=== PATIENT | male | born 1970 | race American Indian/Alaskan Native ===

== ENCOUNTER 2017-12-19 04:42 | Emergency (ER) | payer OTHER ==
[2017-12-19 04:42] VITALS: BMI 26.5
[2017-12-19 04:50] VITALS: TEMP 98.4
--- NOTE | 2017-12-19 04:52 | C.PDOC ---
History Of Present Illness 47 year old male presents to the ED for evaluation of SOB that has been worsening since yesterday. Patient able to speak in 3-4 word sentences, staters he is not a smoker. Patient denies fever, chills, nausea, vomit, CP, palpitations, dizziness, weakness, numbness. Time Seen by Provider: 12/19/17 04:51 Chief Complaint (Nursing): Respiratory Distress History Per: Patient History/Exam Limitations: no limitations Onset/Duration Of Symptoms: Days Current Symptoms Are (Timing): Still Present Recent travel outside of the [place]: No Additional History Per: Patient Past Medical History Reviewed: Historical Data, Nursing Documentation, Vital Signs Vital Signs: Last Vital Signs Temp 98.4 F 12/19/17 04:48 Pulse 82 12/19/17 06:05 Resp 18 12/19/17 06:05 BP 134/85 12/19/17 06:05 Pulse Ox 100 12/19/17 06:05 - Medical History PMH: Asthma Denies: Chronic Kidney Disease Surgical History: No Surg Hx Family History: States: Unknown Family Hx - Social History Hx Alcohol Use: No Hx Substance Use: No - Immunization History Hx Tetanus Toxoid Vaccination: No Hx Influenza Vaccination: No Hx Pneumococcal Vaccination: No Review Of Systems Constitutional: Negative for: Fever, Chills Cardiovascular: Negative for: Chest Pain, Palpitations Respiratory: Positive for: Shortness of Breath. Negative for: Cough Gastrointestinal: Negative for: Nausea, Vomiting Neurological: Negative for: Weakness, Numbness, Headache, Dizziness Physical Exam - Physical Exam Appears: Non-toxic Skin: Warm, Dry Head: Normacephalic Eye(s): bilateral: Normal Inspection Oral Mucosa: Moist Throat: No Erythema, No Exudate Neck: Supple Chest: Symmetrical Cardiovascular: Rhythm Regular Respiratory: Decreased Breath Sounds, No Rales, No Rhonchi, Wheezing (diffuse ) Gastrointestinal/Abdominal: Soft, No Tenderness, No Guarding, No Rebound Back: Normal Inspection Extremity: No Tenderness, No Swelling Extremity: Bilateral: Atraumatic, Normal Color And Temperature, Normal ROM Neurological/Psych: Oriented x3, Normal Speech Gait: Steady ED Course And Treatment - Laboratory Results Result Diagrams: 12/19/17 05:22 12/19/17 05:22 O2 Sat by Pulse Oximetry: 97 (On RA) Pulse Ox Interpretation: Normal - Radiology CXR: Interpreted by Me, Viewed By Me CXR Interpretation: No: Infiltrates, Fracture, Pnemothorax Progress Note: Plan: - Labs. - Duoneb 3 ml INH. - Solumedrol 125 mg IVP. - IV fluids Reevaluation Time: 06:32 Reassessment Condition: Improved Critical Care Time - Critical Care Note Total Time (in mins): 30 Documented critical care: time excludes all time spent performing seperately billable procedures. Disposition Counseled Patient/Family Regarding: Studies Performed, Diagnosis, Need For Followup, Rx Given - Disposition Referrals: Aruna Chowdhury MD [Staff Provider] - Disposition: HOME/ ROUTINE Disposition Time: 04:52 Condition: FAIR Additional Instructions: Please return if symptoms recur Prescriptions: Albuterol HFA [Ventolin HFA 90 mcg/actuation (8 g)] 2 puff IH [id number] #1 puff Albuterol/Ipratropium [Duoneb 3 MG/3 Ml-0.5 MG/3 Ml 3 Ml] 1 ea IH QID PRN #50 neb PRN Reason: Wheezing Prednisone [Deltasone] 20 mg PO DAILY #5 tablet Instructions: Asthma, Adult (DC) Forms: [employer] ([place]) - Clinical Impression Clinical Impression: Exacerbation of asthma - Scribe Statement The provider has reviewed the documentation as recorded by the Scribe Tristan Flower All medical record entries made by the Scribe were at my direction and personally dictated by me. I have reviewed the chart and agree that the record accurately reflects my personal performance of the history, physical exam, medical decision making, and the department course for this patient. I have also personally directed, reviewed, and agree with the discharge instructions and disposition.
[2017-12-19] MEDS ORDERED: Sodium Chloride 0.9% 1,000 ML IV ONE (04:54)
[2017-12-19] MEDS ORDERED: Ipratropium 0.02% Inhal Soln (0.5 mg/2.5 ml) UD IH ONE (04:55)
[2017-12-19] MEDS ORDERED: Albuterol 0.083% Inhal Sol (2.5 mg/3 mL) UD ONE (04:55)
[2017-12-19] MEDS: Albuterol-Ipratrop 3 mg / 0.5 (3 ml) UD IH SCH ×3 (05:06→05:34)
[2017-12-19] MEDS ORDERED: Albuterol-Ipratrop 3 mg / 0.5 (3 ml) UD ONE ×2 (05:10→05:35)
[2017-12-19 05:25] LABS: BASO % 0.7 % (0.0-2.0); EOS # 0.3 K/uL (0.0-0.7); EOS % 7.4 % (0.0-4.0); HEMOGLOBIN 13.1 g/dL (12.0-18.0); LYMPH # 1.9 K/uL (1.0-4.3); LYMPH % 46.8 % (20.0-40.0); MEAN CELL VOLUME 91.1 fL (80.0-94.0); MEAN CORPUSCULAR HEMOGLOBIN 30.7 pg (27.0-31.0); MEAN CORPUSCULAR HGB CONC 33.7 g/dL (33.0-37.0); MEAN PLATELET VOLUME 9.2 fL (7.2-11.7); MONO # 0.6 K/uL (0.0-0.8); MONO % 14.3 % (0.0-10.0); NEUT # 1.2 K/uL (1.8-7.0); NEUT % 30.8 % (50.0-75.0); RBC 4.25 Mil/uL (4.40-5.90); RED CELL DISTRIBUTION WIDTH 12.8 % (11.5-14.5)
[2017-12-19 05:37] LABS: ALB/GLOB RATIO 1.6 (1.0-2.1)
[2017-12-19 05:51] LABS: ALT/SGPT 25 U/L (21-72); AST/SGOT 15 U/L (17-59); BLOOD UREA NITROGEN 10 mg/dL (9-20); CALCIUM 7.9 mg/dl (8.6-10.4); GFR AFRICAN-AMERICAN > 60; GFR NON-AFRICAN AMERICAN > 60
[2017-12-19 06:06] VITALS: BP 134/85; PULSE 82; RESP 18
[2017-12-19 06:34] VITALS: O2SAT 97
--- NOTE | 2017-12-19 15:47 | RAD ---
Date of service: 12/19/2017 HISTORY: wheezing COMPARISON: Comparison is made with 03/21/2017 TECHNIQUE: Chest PA and lateral FINDINGS: LUNGS: No active pulmonary disease. PLEURA: No significant pleural effusion identified. No pneumothorax apparent. CARDIOVASCULAR: Normal. OSSEOUS STRUCTURES: No significant abnormalities. VISUALIZED UPPER ABDOMEN: Normal. OTHER FINDINGS: None. IMPRESSION: No active disease.
== END 2017-12-19 06:50 | disposition home or self-care (01) ==
LOC: C.ER 04:42
DX: J45.901 Unspecified asthma with (acute) exacerbation (principal)
CPT/HCPCS: 71046; 80053; 85025; 94770; 96374; 99284; J2930; J7030

== ENCOUNTER 2018-05-06 07:30 | Emergency (ER) | payer OTHER ==
[2018-05-06 07:31] VITALS: BMI 25.7
[2018-05-06 07:38] VITALS: O2SAT 100
[2018-05-06] MEDS ORDERED: Albuterol-Ipratrop 3 mg / 0.5 (3 ml) UD IH STA (07:54)
[2018-05-06] MEDS ORDERED: Albuterol 0.083% Inhal Sol (2.5 mg/3 mL) UD INH STA (07:54)
[2018-05-06] MEDS ORDERED: Albuterol 0.083% Inhal Sol (2.5 mg/3 mL) UD ONE (08:06)
[2018-05-06] MEDS ORDERED: Albuterol-Ipratrop 3 mg / 0.5 (3 ml) UD ONE (08:06)
--- NOTE | 2018-05-06 09:30 | C.PDOC ---
History Of Present Illness 48 year old male with PMHx of asthma presents to the ED complaining of intermittent shortness of breath, wheezing, and chest tightness for the past several days. Reports he normally uses Ventolin inhaler but it did not help this time. Denies any fever, chills, cough, or any other symptoms. Time Seen by Provider: 05/06/18 07:38 Chief Complaint (Nursing): Shortness Of Breath History Per: Patient History/Exam Limitations: no limitations Onset/Duration Of Symptoms: Days, Intermittent Episodes Current Symptoms Are (Timing): Still Present Quality: Tightness Current Respiratory Medications: Other (Ventolin ) Associated Symptoms: Other (chest tightness, wheezing). denies: Fever, Chills Past Medical History Reviewed: Historical Data, Nursing Documentation, Vital Signs Vital Signs: Last Vital Signs Temp 98.6 F 05/06/18 07:35 Pulse 68 05/06/18 07:35 Resp 20 05/06/18 07:55 BP 121/78 05/06/18 07:35 Pulse Ox 100 05/06/18 07:35 - Medical History PMH: Asthma Denies: Chronic Kidney Disease Other Surgeries: Hx of surgeries Family History: States: No Known Family Hx - Social History Hx Alcohol Use: Yes Hx Substance Use: No - Immunization History Hx Tetanus Toxoid Vaccination: No Hx Influenza Vaccination: No Hx Pneumococcal Vaccination: No Review Of Systems Except As Marked, All Systems Reviewed And Found Negative. Constitutional: Negative for: Fever, Chills Cardiovascular: Positive for: Other (chest tightness ) Respiratory: Positive for: Shortness of Breath, Wheezing. Negative for: Cough Physical Exam - Physical Exam Appears: Non-toxic, No Acute Distress Skin: Warm, Dry, No Rash Head: Normacephalic Eye(s): bilateral: Normal Inspection Nose: Normal Oral Mucosa: Moist Neck: Supple Chest: Symmetrical Cardiovascular: Rhythm Regular, No Murmur Respiratory: No Rales, No Rhonchi, Wheezing (diffused wheezing, more on the right side ), Other (speaking full sentences ) Gastrointestinal/Abdominal: Soft, No Tenderness Neurological/Psych: Oriented x3, Normal Speech Gait: Steady ED Course And Treatment ECG: Interpreted By Me, Viewed By Me ECG Rhythm: Sinus Bradycardia ECG Interpretation: No Acute Changes Rate From EC O2 Sat by Pulse Oximetry: 100 (RA) Pulse Ox Interpretation: Normal - Other Rad CXR X-Ray: Viewed By Me, Read By Radiologist Interpretation: Accession No. : [id number]. Patient Name / ID : NICO HERRING / [id number]. Exam Date : 05/06/2018 08:16:17 ( Approved ). Study Comment : Sex / Age : M / 48Y. Creator : Su Mchugh MD. Dictator : Su Mchugh MD. Business Solutions Analyst : Live Truck Operator : Su Mchugh MD. Approver2 : Report Date : 05/06/2018 09:41:31. My Comment : . Date of service: 05/06/2018. HISTORY: chest tightness, h/o asthma. COMPARISON: 12/19/2017. FINDINGS: LUNGS: The lungs are well inflated and clear. PLEURA: No pleural effusions or pneumothorax. CARDIOVASCULAR: The heart is normal in size. No aortic atherosclerotic calcification present. OSSEOUS STRUCTURES: Within normal limits for the patient's age. VISUALIZED UPPER ABDOMEN: Normal. OTHER FINDINGS: None. IMPRESSION: No active pulmonary disease. Progress Note: Patient given nebulizer treatment and Prednisone. CXR and EKG ordered and reviewed. On re-evaluation patient feels better and is stable to be d/c home with PMD/Clinic follow up. Disposition - Disposition Disposition: HOME/ ROUTINE Disposition Time: 09:59 Condition: STABLE Additional Instructions: Follow up with PMD within 1-2 days. Return to ED if feel worse. Prescriptions: Albuterol 0.083% [Albuterol Sulfate 3 Ml] 3 ml IH .Q4-6H #100 vial Nebulizer [Compact Compressor Nebulizer] 1 dev XX PRN PRN #1 dev PRN Reason: Wheezing Mask, Face [Nebulizer Aerosol Mask Adult] 1 dev XX PRN PRN #1 dev PRN Reason: Wheezing predniSONE [predniSONE Tab] 2 tab PO DAILY #8 tab Albuterol HFA [Ventolin HFA 90 mcg/actuation (8 g)] 1 puff IH .Q4-6H #1 inhaler Instructions: Asthma, Adult (DC) Forms: [employer] ([place]) - Clinical Impression Clinical Impression: Acute asthma exacerbation - PA / SHRIMPING BOAT CAPTAIN / Resident Statement MD/DO has reviewed & agrees with the documentation as recorded. - Scribe Statement The provider has reviewed the documentation as recorded by the Scribe Sari Chaney All medical record entries made by the Scribe were at my direction and personally dictated by me. I have reviewed the chart and agree that the record accurately reflects my personal performance of the history, physical exam, medical decision making, and the department course for this patient. I have also personally directed, reviewed, and agree with the discharge instructions and disposition.
--- NOTE | 2018-05-06 09:45 | RAD ---
Date of service: 05/06/2018 HISTORY: chest tightness, h/o asthma COMPARISON: 12/19/2017. FINDINGS: LUNGS: The lungs are well inflated and clear. PLEURA: No pleural effusions or pneumothorax. CARDIOVASCULAR: The heart is normal in size. No aortic atherosclerotic calcification present. OSSEOUS STRUCTURES: Within normal limits for the patient's age. VISUALIZED UPPER ABDOMEN: Normal. OTHER FINDINGS: None. IMPRESSION: No active pulmonary disease.
[2018-05-06 10:16] VITALS: BP 122/87; PULSE 81; RESP 18; TEMP 98.1
--- NOTE | 2018-05-09 08:22 | CARD ---
APPROVED REPORT Date of service: 05/06/2018 EKG Measurement Heart [id number] <Conclusion> Sinus bradycardia Otherwise normal ECG
== END 2018-05-06 10:16 | disposition home or self-care (01) ==
LOC: C.ER 07:30
DX: J45.901 Unspecified asthma with (acute) exacerbation (principal)

== ENCOUNTER 2018-08-04 20:52 | Inpatient (IN) | payer OTHER ==
[2018-08-04 20:52] VITALS: BMI 25.7
--- NOTE | 2018-08-04 21:01 | C.PDOC ---
History Of Present Illness 48 year old male, w/pmhx of asthma (previous intubations) and pneumonia (currently on Azithromycin) presents to the ED for evaluation of shortness of breath. Patient states he has been experiencing shortness of breath over the past couple days, and symptoms feel like his previous asthma. Patient also reports mild fever. He has been using a nebulizer at home without relief. He denies any nausea or vomiting. No rashes. No allergy like symptoms. No tongue swelling or throat itchiness. Patient denies chills, cough, generalized body aches, chest pain, back pain, abdominal pain or any urinary complaints at this time. Time Seen by Provider: 08/04/18 21:01 Chief Complaint (Nursing): Shortness Of Breath History Per: Patient History/Exam Limitations: no limitations Onset/Duration Of Symptoms: Days (2) Current Symptoms Are (Timing): Still Present Associated Symptoms: Fever. denies: Chills Additional History Per: Patient Past Medical History Reviewed: Historical Data, Nursing Documentation, Vital Signs - Medical History PMH: Asthma, Pneumonia Denies: Chronic Kidney Disease Surgical History: No Surg Hx Family History: States: Unknown Family Hx - Social History Hx Alcohol Use: Yes Hx Substance Use: No - Immunization History Hx Tetanus Toxoid Vaccination: No Hx Influenza Vaccination: No Hx Pneumococcal Vaccination: No Review Of Systems Constitutional: Positive for: Fever. Negative for: Chills, Sweats, Weakness, Malaise, Weight loss Eyes: Negative for: Pain, Vision Change, Conjunctivae Inflammation, Eyelid Inflammation, Redness ENT: Negative for: Ear Pain, Ear Discharge, Nose Pain, Nose Congestion, Mouth Pain, Mouth Swelling Cardiovascular: Negative for: Chest Pain, Palpitations, Orthopnea Respiratory: Positive for: Shortness of Breath. Negative for: Cough, Hemoptysis, SOB with Excertion, Pleuritic Pain Gastrointestinal: Negative for: Nausea, Vomiting, Abdominal Pain, Constipation, Melena, Hematochezia, Hematemesis Genitourinary: Negative for: Dysuria, Frequency, Incontinence, Hematuria, Penile Discharge Musculoskeletal: Positive for: Other (generalized body aches ). Negative for: Neck Pain, Shoulder Pain, Arm Pain, Back Pain Skin: Negative for: Rash, Lesions, Jaundice Neurological: Negative for: Weakness, Numbness, Confusion, Seizures, Altered Mental Status, Headache Physical Exam - Physical Exam Appears: Non-toxic, Other (speaking 2-3 word sentences initially) Skin: Normal Color, Warm, Dry Head: Atraumatic, Normacephalic Eye(s): bilateral: Normal Inspection, PERRL, EOMI Ear(s): Bilateral: Normal Nose: Normal Oral Mucosa: Moist Tongue: Normal Appearing Lips: Normal Appearing Teeth: Normal Dentition Gingiva: Normal Appearing Throat: Normal, No Erythema, No Exudate Neck: Normal, Normal ROM, Supple, Other (no meningeal signs) Lymphatic: Normal Exam, No Adenopathy Chest: Symmetrical, No Deformity, No Tenderness Cardiovascular: Rhythm Regular, No Edema, No Friction Rub, No Murmur, No JVD Respiratory: No Accessory Muscle Use, No Rales, No Rhonchi, Wheezing (all neff ), No Plerual Rub, Other (speaking in 3-4 word sentences ) Gastrointestinal/Abdominal: Soft, No Tenderness, No Guarding, No Rebound Back: Normal Inspection, No CVA Tenderness, No Vertebral Tenderness, No Decreased ROM, No Paraspinal Tenderness Extremity: Normal ROM, No Tenderness, No Pedal Edema, Capillary Refill (less than 2 seconds ), No Swelling Extremity: Bilateral: Atraumatic Neurological/Psych: Oriented x3, Normal Speech, Normal Cognition ED Course And Treatment - Laboratory Results Result Diagrams: 08/04/18 21:21 08/04/18 21:21 O2 Sat by Pulse Oximetry: 99 (on RA) Pulse Ox Interpretation: Normal Medical Decision Making Medical Decision Making: Impression: 48 year old male with shortness of breath. Speaking in 2-3 word sentences with nebulizer. Denies any chest pain or back pain. No hx of blood clots. Lungs w/ diffuse wheezes. No rash noted or throat abnls. No swelling or rash. Previous intubations, and recent dx w/ PNA currently rx day 4/5 w/ PNA diagnosed via CT. Magnesium ordered given speaking in 2-3 sentences and hx of intubations. EK, NSR, no stemi Differential diagnoses include but are not limited to: moderate-severe asthma exacerbation vs outpatient failure of treatment of pneumonia Plan: * bloodwork * CXR * Rapid Flu Swab * Albuterol INH * Magnesium Sulfate IVPB * Solu-Medrol IVP * IV fluids * reassess and disposition Progress: Bloodwork, CXR, Rapid Flu swab ordered and reviewed. Albuterol INH, Magnesium Sulfate IVPB, Solu-Medrol IVP and IV Fluids given. 1127 flu negative CXR w/ pna on my read, Abx ordered for failed outpt rx. No elevated wbc, however was given mag and had failed outpt rx of PNA dx w/ CT 4-5d prior. Pt in NAD on re-eval, vitals stabilized, speaking in full sentences, comfortable Appreciate consult w/ ICU Dr. Rojas: to tele Appreciate consult w/ DR. Mckeon: to admit to his service Disposition - Disposition Disposition: HOSPITALIZED Disposition Time: 23:30 Condition: GOOD - Clinical Impression Clinical Impression: Pneumonia, Asthma - Scribe Statement The provider has reviewed the documentation as recorded by the Scribe (Wilma Rojas) Provider Attestation: All medical record entries made by the Scribe were at my direction and personally dictated by me. I have reviewed the chart and agree that the record accurately reflects my personal performance of the history, physical exam, medical decision making, and the department course for this patient. I have also personally directed, reviewed, and agree with the discharge instructions and disposition.
[2018-08-04] MEDS ORDERED: Albuterol-Ipratrop 3 mg / 0.5 (3 ml) UD ONE ×2 (21:05→21:20)
[2018-08-04] MEDS ORDERED: Albuterol-Ipratrop 3 mg / 0.5 (3 ml) UD INH STA (21:06)
[2018-08-04] MEDS ORDERED: MethylPREDNISolone 40 mg Vial IVP STA (21:07)
[2018-08-04] MEDS ORDERED: Magnesium Sulfate 1 gm in D5W 1 GM/100 ML BAG IVPB ONE ×2 (21:07→21:08)
[2018-08-04 21:24] LABS: BASO # 0.1 K/uL (0.0-0.2); BASO % 0.8 % (0.0-2.0); EOS % 0.1 % (0.0-4.0); HEMOGLOBIN 14.5 g/dL (12.0-18.0); LYMPH # 2.1 K/uL (1.0-4.3); LYMPH % 30.7 % (20.0-40.0); MEAN CELL VOLUME 93.5 fL (80.0-94.0); MEAN CORPUSCULAR HEMOGLOBIN 31.1 pg (27.0-31.0); MEAN CORPUSCULAR HGB CONC 33.2 g/dL (33.0-37.0); MEAN PLATELET VOLUME 9.9 fL (7.2-11.7); MONO # 0.3 K/uL (0.0-0.8); MONO % 4.9 % (0.0-10.0); NEUT # 4.3 K/uL (1.8-7.0); NEUT % 63.5 % (50.0-75.0); RBC 4.68 Mil/uL (4.40-5.90); RED CELL DISTRIBUTION WIDTH 13.3 % (11.5-14.5); WHITE BLOOD COUNT 6.8 K/uL (4.8-10.8)
[2018-08-04] MEDS: Sodium Chloride 0.9% 1,000 ML IV SCH (21:24)
[2018-08-04] MEDS ORDERED: Sodium Chloride 0.9% 1,000 ML ONE (21:26)
[2018-08-04 21:29] LABS: VENOUS BLOOD GAS BASE EXCESS 0.8 mmol/L (0.0-2.0); VENOUS BLOOD GAS PCO2 49 mmHg (40-60); VENOUS BLOOD GAS PO2 44 mm/Hg (30-55); VENOUS BLOOD PH 7.35 (7.32-7.43)
[2018-08-04 21:39] LABS: BLOOD UREA NITROGEN 14 mg/dL (9-20); GFR NON-AFRICAN AMERICAN > 60
[2018-08-04 21:46] LABS: ALB/GLOB RATIO 1.5 (1.0-2.1); ALBUMIN 4.3 g/dL (3.5-5.0); ALT/SGPT < 6 U/L (21-72); AST/SGOT 48 U/L (17-59)
[2018-08-04] MEDS ORDERED: Piperacill/Tazo 3.375gm in Dex 3.375 GM/50 ML BAG IVPB STA (23:25)
[2018-08-04] MEDS ORDERED: Piperacillin/Tazobact 3.375 gm 100 ML IVPB ONE (23:39)
[2018-08-05] MEDS ORDERED: Vancomycin 1 GM 1 GM/250 ML BAG IVPB ONE (00:36)
--- NOTE | 2018-08-05 01:34 | CP.PCM.HP ---
History of Present Illness - History of Present Illness History of Present Illness: H&P for Dr. Mckeon. 48M with PMHx of asthma with two previous intubations and recent dx of PNA presents to ED for sudden onset of SOB that occurred around 8pm last night. States he had been feeling "funny" earlier in the day with hot flashes. Reports increasingly frequent asthma exacerbations- at least once per month for the past 5 months. States his PMD sent him to have a CT chest on Wednesday which showed left lung PNA and was placed on Azithromycin. Patient was given Solumedrol 125mg IV, duonebs and Mg sulfate 1g in ED with significant improvmeent of symptoms. Patient denies chest pain, cough, chills, abdominal pain, weakness, nausea, vomiting, and any other symptoms. PMHx: asthma, vertigo PSH: L foot surgery Meds: See med list Allg: NKDA Social: Denies tobacco, alcohol and illicit drugs Family Hx: mother and brother with asthma Review of Systems: -Gen: +hot flash, No chills, No headache, No lethargy, No weakness. -HEENT: No dizziness, No change in vision, No change in hearing, No sore throat, No dysphagia, No nasal congestion, No mucous. -Cardio: No chest pain, No palpitations, No lower extremity edema, No orthopnea. -Resp: No cough, + dyspnea, No hemoptysis, No wheezing, No pain on inspiration. -GI: No abdominal pain, No nausea/vomiting, No diarrhea/constipation, No hematochezia, No hematemesis. -: No dysuria, No urinary freq, No incontinence, No hematuria, No change in urinary stream. -MSK: No back pain, No muscle weakness, No radiating pain. -Skin: No itching, No rash, No lesions. -Neuro: No confusion, No numbness, No tingling, No focal weakness, No radicular pain, No syncope. -Psych: No anxiety, No depression, No H/I, No S/I, No hallucinations. Present on Admission - Present on Admission Any Indicators Present on Admission: No Past Patient History - Past Medical History & Family History Past Medical History?: Yes - Past Social History Smoking Status: Never Smoked - CARDIAC Hx Cardiac Disorders: No - PULMONARY Hx Asthma: Yes Hx Pneumonia: Yes - NEUROLOGICAL Hx Neurological Disorder: No - HEENT Hx HEENT Problems: No - RENAL Hx Chronic Kidney Disease: No - ENDOCRINE/METABOLIC Hx Endocrine Disorders: No - HEMATOLOGICAL/ONCOLOGICAL Hx Blood Disorders: No Hx Blood Transfusions: No - INTEGUMENTARY Hx Dermatological Problems: No - MUSCULOSKELETAL/RHEUMATOLOGICAL Hx Musculoskeletal Disorders: No Hx Falls: No - GASTROINTESTINAL Hx Gastrointestinal Disorders: No - GENITOURINARY/GYNECOLOGICAL Hx Genitourinary Disorders: No - PSYCHIATRIC Hx Substance Use: No - SURGICAL HISTORY Hx Surgeries: Yes Hx Orthopedic Surgery: Yes (right big toe) - ANESTHESIA Hx Anesthesia: Yes Hx Anesthesia Reactions: No Meds Home Medications: Home Medication List Medication Instructions Recorded Confirmed Type Prednisone [Deltasone] 20 mg PO BID #6 tablet 08/05/18 Rx Allergies/Adverse Reactions: Allergies Allergy/AdvReac Type Severity Reaction Status Date / Time No Known Allergies Allergy Verified 05/06/18 07:38 Physical Exam - Constitutional Appears: Non-toxic, No Acute Distress - Head Exam Head Exam: ATRAUMATIC, NORMOCEPHALIC - Eye Exam Eye Exam: EOMI, Normal appearance, PERRL - ENT Exam ENT Exam: Mucous Membranes Moist, Normal Exam - Neck Exam Neck exam: Positive for: Full Rom, Normal Inspection - Respiratory Exam Respiratory Exam: Decreased Breath Sounds (L lower lobe), NORMAL BREATHING PATTERN. absent: Accessory Muscle Use, Rales, Rhonchi, Wheezes, Respiratory Distress Additional comments: speaking in full sentences - Cardiovascular Exam Cardiovascular Exam: REGULAR RHYTHM, +S1, +S2 - GI/Abdominal Exam GI & Abdominal Exam: Normal Bowel Sounds, Soft. absent: Guarding, Rebound, Tenderness - Extremities Exam Extremities exam: Positive for: full ROM, normal inspection, pedal pulses present. Negative for: pedal edema, tenderness - Neurological Exam Neurological exam: Alert, Oriented x3 - Psychiatric Exam Psychiatric exam: Normal Affect, Normal Mood - Skin Skin Exam: Dry, Normal Color, Warm Results - Vital Signs Recent Vital Signs: Last Vital Signs Temp 98.3 F 08/05/18 01:25 Pulse 78 08/05/18 01:25 Resp 20 08/05/18 01:25 BP 119/67 08/05/18 01:25 Pulse Ox 99 08/05/18 01:27 - Labs Result Diagrams: 08/05/18 07:59 08/05/18 07:59 Labs: Laboratory Results - last 24 hr 08/04/18 08/04/18 08/04/18 21:21 21:21 21:25 WBC 6.8 D RBC 4.68 Hgb 14.5 Hct 43.8 MCV 93.5 D MCH 31.1 H MCHC 33.2 RDW 13.3 Plt Count 301 D MPV 9.9 Neut % (Auto) 63.5 Lymph % (Auto) 30.7 [place] % (Auto) 4.9 Eos % (Auto) 0.1 Baso % (Auto) 0.8 Neut # (Auto) 4.3 Lymph # (Auto) 2.1 [place] # (Auto) 0.3 Eos # (Auto) 0.0 Baso # (Auto) 0.1 pO2 44 VBG pH 7.35 VBG pCO2 49 VBG HCO3 25.0 VBG Total CO2 28.6 H VBG O2 Sat (Calc) 79.5 H VBG Base Excess 0.8 VBG Potassium 3.6 Glucose 120 H Lactate 3.3 H Sodium 134 139.0 Potassium 4.4 Chloride 101 104.0 Carbon Dioxide 24 Anion Gap 14 BUN 14 Creatinine 1.0 Est GFR ( Amer) > 60 Est GFR (Non-Af Amer) > 60 Random Glucose 119 H D Calcium 9.0 Total Bilirubin 1.0 AST 48 ALT < 6 L D Alkaline Phosphatase 72 Total Protein 7.2 Albumin 4.3 Globulin 2.9 Albumin/Globulin Ratio 1.5 Venous Blood Potassium 3.6 Influenza Typ A,B (EIA) 08/04/18 21:43 WBC RBC Hgb Hct MCV MCH MCHC RDW Plt Count MPV Neut % (Auto) Lymph % (Auto) [place] % (Auto) Eos % (Auto) Baso % (Auto) Neut # (Auto) Lymph # (Auto) [place] # (Auto) Eos # (Auto) Baso # (Auto) pO2 VBG pH VBG pCO2 VBG HCO3 VBG Total CO2 VBG O2 Sat (Calc) VBG Base Excess VBG Potassium Glucose Lactate Sodium Potassium Chloride Carbon Dioxide Anion Gap BUN Creatinine Est GFR ( Amer) Est GFR (Non-Af Amer) Random Glucose Calcium Total Bilirubin AST ALT Alkaline Phosphatase Total Protein Albumin Globulin Albumin/Globulin Ratio Venous Blood Potassium Influenza Typ A,B (EIA) Negative for flu a/b Assessment & Plan - Assessment and Plan (Free Text) Plan: 48 year old male with asthma exacerbation and PNA Asthma exacerbation Given solumedrol, duonebs and Mg sulfate in ED Duonebs Q2H PRN Solumedrol 40mg IV Q12H Hx of PNA Diagnosed on Wednesday by outpatient CT scan Continue Azithromycin 250 PO daily Hx of vertigo Meclizine 25mg Q8H PRN PPx SCDs Heparin 5000u SC Q12H Case discussed with Dr. Linda Harkins, PGY-1
[2018-08-05] MEDS: Albuterol-Ipratrop 3 mg / 0.5 (3 ml) UD INH PRN ×2 (04:08→12:14)
[2018-08-05] MEDS ORDERED: Albuterol HFA 90 mcg/actuation (8 g) INH PRN (04:28)
[2018-08-05] MEDS ORDERED: MethylPREDNISolone 40 mg Vial IVP SCH (04:30)
[2018-08-05 05:10] VITALS: RESP 18
[2018-08-05] MEDS: Sodium Chloride 0.9% 1,000 ML IV SCH ×2 (07:45→09:59)
[2018-08-05] MEDS ORDERED: Fluticasone-Vilanterol 200/25mcg Diskus INH SCH (08:00)
[2018-08-05 08:05] LABS: BASO % 0.2 % (0.0-2.0); EOS % 0.1 % (0.0-4.0); HEMOGLOBIN 13.2 g/dL (12.0-18.0); LYMPH # 0.3 K/uL (1.0-4.3); LYMPH % 2.4 % (20.0-40.0); MEAN CELL VOLUME 93.9 fL (80.0-94.0); MEAN CORPUSCULAR HEMOGLOBIN 31.6 pg (27.0-31.0); MEAN CORPUSCULAR HGB CONC 33.6 g/dL (33.0-37.0); MEAN PLATELET VOLUME 9.6 fL (7.2-11.7); MONO # 0.3 K/uL (0.0-0.8); MONO % 1.8 % (0.0-10.0); NEUT # 13.6 K/uL (1.8-7.0); NEUT % 95.5 % (50.0-75.0); PLATELET COUNT 215 K/uL (130-400); RBC 4.19 Mil/uL (4.40-5.90); RED CELL DISTRIBUTION WIDTH 13.3 % (11.5-14.5)
[2018-08-05 08:09] LABS: WHITE BLOOD COUNT 14.2 K/uL (4.8-10.8)
[2018-08-05 08:16] VITALS: BP 130/69; TEMP 98.2; O2SAT 100
[2018-08-05 08:25] LABS: ALB/GLOB RATIO 1.5 (1.0-2.1); ALBUMIN 3.8 g/dL (3.5-5.0); ALT/SGPT 9 U/L (21-72); AST/SGOT 26 U/L (17-59); BLOOD UREA NITROGEN 12 mg/dL (9-20); CALCIUM 9.1 mg/dl (8.6-10.4); GFR NON-AFRICAN AMERICAN > 60
[2018-08-05 09:50] LABS: BANDS 3 % (0-2); LYMPHOCYTE 2 % (20-40); MONOCYTE 1 % (0-10); NEUTROPHIL 94 % (50-75); TOTAL CELLS COUNTED 100
[2018-08-05 09:51] LABS: PLATELET ESTIMATE NORMAL (NORMAL)
--- NOTE | 2018-08-05 09:51 | RAD ---
Date of service: 08/04/2018 HISTORY: asthma COMPARISON: 04/28/2018 FINDINGS: LUNGS: The lungs are well inflated and clear. PLEURA: No pleural effusions or pneumothorax. CARDIOVASCULAR: The heart is normal in size. No aortic atherosclerotic calcifications present. OSSEOUS STRUCTURES: Within normal limits for the patient's age. VISUALIZED UPPER ABDOMEN: Normal. OTHER FINDINGS: None. IMPRESSION: No active pulmonary disease.
[2018-08-05] MEDS ORDERED: Pantoprazole 40 mg EC Tab PO SCH (10:00)
[2018-08-05] MEDS ORDERED: Fluticasone Nasal 50 mcg/Spray NAS SCH (10:00)
--- NOTE | 2018-08-05 11:04 | CARD ---
APPROVED REPORT Date of service: 08/04/2018 EKG Measurement Heart [id number] <Conclusion> Normal sinus rhythm Normal ECG
--- NOTE | 2018-08-05 12:50 | CP.PCM.DIS ---
Provider - Provider Date of Admission: 08/04/18 23:26 Attending physician: Vinny Mckeon Jr, MD Time Spent in preparation of Discharge (in minutes): 38 Hospital Course - Lab Results Lab Results: Most Recent Lab Values WBC 14.2 K/uL (4.8-10.8) H D 08/05/18 07:59 RBC 4.19 Mil/uL (4.40-5.90) L 08/05/18 07:59 Hgb 13.2 g/dL (12.0-18.0) 08/05/18 07:59 Hct 39.3 % (35.0-51.0) 08/05/18 07:59 MCV 93.9 fL (80.0-94.0) 08/05/18 07:59 MCH 31.6 pg (27.0-31.0) H 08/05/18 07:59 MCHC 33.6 g/dL (33.0-37.0) 08/05/18 07:59 RDW 13.3 % (11.5-14.5) 08/05/18 07:59 Plt Count 215 K/uL (130-400) 08/05/18 07:59 MPV 9.6 fL (7.2-11.7) 08/05/18 07:59 Neut % (Auto) 95.5 % (50.0-75.0) H 08/05/18 07:59 Lymph % (Auto) 2.4 % (20.0-40.0) L 08/05/18 07:59 [place] % (Auto) 1.8 % (0.0-10.0) 08/05/18 07:59 Eos % (Auto) 0.1 % (0.0-4.0) 08/05/18 07:59 Baso % (Auto) 0.2 % (0.0-2.0) 08/05/18 07:59 Neut # (Auto) 13.6 K/uL (1.8-7.0) H 08/05/18 07:59 Lymph # (Auto) 0.3 K/uL (1.0-4.3) L 08/05/18 07:59 [place] # (Auto) 0.3 K/uL (0.0-0.8) 08/05/18 07:59 Eos # (Auto) 0.0 K/uL (0.0-0.7) 08/05/18 07:59 Baso # (Auto) 0.0 K/uL (0.0-0.2) 08/05/18 07:59 Neutrophils % (Manual) 94 % (50-75) H 08/05/18 07:59 Band Neutrophils % 3 % (0-2) H 08/05/18 07:59 Lymphocytes % (Manual) 2 % (20-40) L 08/05/18 07:59 Monocytes % (Manual) 1 % (0-10) 08/05/18 07:59 Platelet Estimate Normal (NORMAL) 08/05/18 07:59 RBC Morphology Normal 08/05/18 07:59 pO2 44 mm/Hg (30-55) 08/04/18 21:25 VBG pH 7.35 (7.32-7.43) 08/04/18 21:25 VBG pCO2 49 mmHg (40-60) 08/04/18 21:25 VBG HCO3 25.0 mmol/L 08/04/18 21:25 VBG Total CO2 28.6 mmol/L (22-28) H 08/04/18 21:25 VBG O2 Sat (Calc) 79.5 % (40-65) H 08/04/18 21:25 VBG Base Excess 0.8 mmol/L (0.0-2.0) 08/04/18 21:25 VBG Potassium 3.6 mmol/L (3.6-5.2) 08/04/18 21:25 Sodium 139.0 mmol/l (132-148) 08/04/18 21:25 Chloride 104.0 mmol/L (98-107) 08/04/18 21:25 Glucose 120 mg/dl (75-110) H 08/04/18 21:25 Lactate 3.3 mmol/L (0.7-2.1) H 08/04/18 21:25 Sodium 136 mmol/L (132-148) 08/05/18 07:59 Potassium 4.4 mmol/L (3.6-5.2) 08/05/18 07:59 Chloride 103 mmol/L (98-107) 08/05/18 07:59 Carbon Dioxide 25 mmol/L (22-30) 08/05/18 07:59 Anion Gap 12 (10-20) 08/05/18 07:59 BUN 12 mg/dL (9-20) 08/05/18 07:59 Creatinine 0.9 mg/dL (0.8-1.5) 08/05/18 07:59 Est GFR ( Amer) > 60 08/05/18 07:59 Est GFR (Non-Af Amer) > 60 08/05/18 07:59 Random Glucose 134 mg/dL (75-110) H 08/05/18 07:59 Calcium 9.1 mg/dl (8.6-10.4) 08/05/18 07:59 Total Bilirubin 0.6 mg/dL (0.2-1.3) 08/05/18 07:59 AST 26 U/L (17-59) 08/05/18 07:59 ALT 9 U/L (21-72) L D 08/05/18 07:59 Alkaline Phosphatase 57 U/L (38-126) 08/05/18 07:59 Total Protein 6.3 g/dL (6.3-8.3) 08/05/18 07:59 Albumin 3.8 g/dL (3.5-5.0) 08/05/18 07:59 Globulin 2.6 gm/dL (2.2-3.9) 08/05/18 07:59 Albumin/Globulin Ratio 1.5 (1.0-2.1) 08/05/18 07:59 Venous Blood Potassium 3.6 mmol/L (3.6-5.2) 08/04/18 21:25 Influenza Typ A,B (EIA) Negative for flu a/b (NEGATIVE) 08/04/18 21:43 - Hospital Course Hospital Course: Upon Admission 48 year old male, w/pmhx of asthma (previous intubations) and pneumonia (currently on Azithromycin) presents to the ED for evaluation of shortness of breath. Patient states he has been experiencing shortness of breath over the past couple days, and symptoms feel like his previous asthma. Patient also reports mild fever. He has been using a nebulizer at home without relief. He denies any nausea or vomiting. No rashes. No allergy like symptoms. No tongue swelling or throat itchiness. Patient denies chills, cough, generalized body aches, chest pain, back pain, abdominal pain or any urinary complaints at this time. Hospital Course Patient admitted for asthma exacerbation. Treated with duonebs, breoellipta, and steroids. Patient started feeling better after treatment. Discharged with followup instructions and medications. Discharge Plan 1. Patient is stable for discharge to home as per Dr. Mckeon. 2. Patient will need to followup with primary medical doctor and ladle operator within 1 week of discharge from hospital. 3. Patient will continue all home medications prescribed including the recent Azithromycin prescribed to him from previous different hospital admission. Patient was prescribed 3 days worth of prednisone 20mg to be taken twice a day by mouth. 4. Patient should return to hospital if symptoms worsen or recur. 5. Patient understands the plan as above and agrees. Discharge Exam - Head Exam Head Exam: NORMAL INSPECTION, NORMOCEPHALIC - Eye Exam Eye Exam: EOMI, Normal appearance - ENT Exam ENT Exam: Mucous Membranes Moist - Respiratory Exam Respiratory Exam: NORMAL BREATHING PATTERN. absent: Wheezes - Cardiovascular Exam Cardiovascular Exam: REGULAR RHYTHM, +S1, +S2 - GI/Abdominal Exam GI & Abdominal Exam: Normal Bowel Sounds, Soft. absent: Diminished Bowel Sounds, Tenderness - Neurological Exam Neurological exam: Alert, Oriented x3 - Psychiatric Exam Psychiatric exam: Normal Affect, Normal Mood - Skin Skin Exam: Dry, Intact, Normal Color Discharge Plan - Discharge Medications Prescriptions: Prednisone [Deltasone] 20 mg PO BID #6 tablet - Follow Up Plan Condition: GOOD Disposition: HOME/ ROUTINE Additional Instructions: 1. Patient is stable for discharge to home as per Dr. Mckeon. 2. Patient will need to followup with primary medical doctor and ladle operator within 1 week of discharge from hospital. 3. Patient will continue all home medications prescribed including the recent Azithromycin prescribed to him from previous different hospital admission. Patient was prescribed 3 days worth of prednisone 20mg to be taken twice a day by mouth. 4. Patient should return to hospital if symptoms worsen or recur. 5. Patient understands the plan as above and agrees.
[2018-08-05] MEDS ORDERED: Pneumococcal 23-Valent Vaccine IM ONE (12:58)
[2018-08-05] MEDS ORDERED: Influenza Vaccine 60 mcg/0.5 mL SYR (4YR UP) IM ONE (12:58)
[2018-08-05 14:22] VITALS: PULSE 94
[2018-08-06] MEDS ORDERED: Tiotropium 18 mcg Cap For Inhalation INH SCH (08:00)
[2018-08-08] MEDS ORDERED: Pneumococcal 23-Valent Vaccine IM ONE (10:00)
[2018-08-08] MEDS ORDERED: Influenza Vaccine 60 mcg/0.5 mL SYR (4YR UP) IM ONE (10:00)
== END 2018-08-05 14:22 | disposition home or self-care (01) | DRG 202 ==
LOC: C.ER 20:52 → C.9E 23:26 → C.6T 08-05 00:49
PROVIDERS: ADMIT Internal Medicine; ATTEND Internal Medicine
DX: J45.901 Unspecified asthma with (acute) exacerbation (principal); J18.9 Pneumonia, unspecified organism

== ENCOUNTER 2018-08-11 10:04 | Inpatient (IN) | payer OTHER ==
[2018-08-11 10:04] VITALS: BMI 25.7
[2018-08-11] MEDS ORDERED: Albuterol 0.083% Inhal Sol (2.5 mg/3 mL) UD INH STA (13:05)
[2018-08-11] MEDS ORDERED: Albuterol-Ipratrop 3 mg / 0.5 (3 ml) UD IH STA (13:05)
--- NOTE | 2018-08-11 13:43 | RAD ---
Date of service: 08/11/2018 HISTORY: SOB, lightheaded COMPARISON: Comparison chest dated 08/04/2018. crisis TECHNIQUE: 1 view obtained. FINDINGS: LUNGS: No active pulmonary disease. PLEURA: No significant pleural effusion identified, no pneumothorax apparent. There may be some minor left apical pleural thickening. CARDIOVASCULAR: No aortic atherosclerotic calcification present. Normal cardiac size. No pulmonary vascular congestion. OSSEOUS STRUCTURES: No significant abnormalities. VISUALIZED UPPER ABDOMEN: Normal. OTHER FINDINGS: None. IMPRESSION: No active disease.
--- NOTE | 2018-08-11 13:47 | CT ---
Date of service: 08/11/2018 PROCEDURE: CT HEAD WITHOUT CONTRAST. HISTORY: Dizziness COMPARISON: None available. TECHNIQUE: Axial computed tomography images were obtained through the head/brain without intravenous contrast. Radiation dose: Total exam DLP = 1224.03 mGy-cm. This CT exam was performed using one or more of the following dose reduction techniques: Automated exposure control, adjustment of the mA and/or kV according to patient size, and/or use of iterative reconstruction technique. FINDINGS: HEMORRHAGE: No acute parenchymal, subarachnoid or extra-axial hemorrhage. BRAIN: No mass effect or edema. No atrophy or chronic microvascular ischemic changes. VENTRICLES: Unremarkable. No hydrocephalus. CALVARIUM: Unremarkable. PARANASAL SINUSES: Minimal mucosal thickening seen within the inferior posterior aspect right chamber sphenoid sinus.. MASTOID AIR CELLS: Unremarkable as visualized. No inflammatory changes. OTHER FINDINGS: None. IMPRESSION: No acute intracranial hemorrhage.
[2018-08-11 14:52] LABS: BASO # 0.1 K/uL (0.0-0.2); BASO % 0.8 % (0.0-2.0); EOS # 0.1 K/uL (0.0-0.7); EOS % 2.2 % (0.0-4.0); HEMOGLOBIN 14.4 g/dL (12.0-18.0); LYMPH # 2.4 K/uL (1.0-4.3); LYMPH % 37.7 % (20.0-40.0); MEAN CELL VOLUME 93.5 fL (80.0-94.0); MEAN CORPUSCULAR HEMOGLOBIN 31.9 pg (27.0-31.0); MEAN CORPUSCULAR HGB CONC 34.1 g/dL (33.0-37.0); MEAN PLATELET VOLUME 9.4 fL (7.2-11.7); MONO # 0.7 K/uL (0.0-0.8); NEUT # 3.1 K/uL (1.8-7.0); NEUT % 48.3 % (50.0-75.0); NRBC % 0.1 % (0.0-2.0); RBC 4.5 Mil/uL (4.40-5.90); RED CELL DISTRIBUTION WIDTH 12.8 % (11.5-14.5); WHITE BLOOD COUNT 6.3 K/uL (4.8-10.8)
[2018-08-11 14:58] LABS: PROTHROMBIN TIME 11.1 SECONDS (9.7-12.2)
[2018-08-11 15:18] LABS: ALB/GLOB RATIO 1.6 (1.0-2.1); ALBUMIN 3.8 g/dL (3.5-5.0); ALT/SGPT 6 U/L (21-72); AST/SGOT 23 U/L (17-59); BLOOD UREA NITROGEN 16 mg/dL (9-20); CALCIUM 8.6 mg/dl (8.6-10.4); GFR NON-AFRICAN AMERICAN > 60
--- NOTE | 2018-08-11 15:41 | C.PDOC ---
History Of Present Illness 48 year old male presents to ED with complaint of several episodes of asthma exacerbation and near syncope. Patient states that he was was here several days ago and was admitted for asthma exacerbation and was recently discharged. Dom caceres denies chest pain, nausea, vomiting, and palpitations. Time Seen by Provider: 08/11/18 11:30 Chief Complaint (Nursing): Dizziness/Lightheaded History Per: Patient History/Exam Limitations: no limitations Onset/Duration Of Symptoms: Days Current Symptoms Are (Timing): Still Present Past Medical History Reviewed: Historical Data, Nursing Documentation, Vital Signs Vital Signs: Last Vital Signs Temp 98.3 F 08/11/18 10:20 Pulse 92 H 08/11/18 10:20 Resp 16 08/11/18 10:20 BP 143/84 08/11/18 10:20 Pulse Ox 100 08/11/18 10:20 - Medical History PMH: Asthma, Pneumonia Denies: Chronic Kidney Disease Surgical History: No Surg Hx Family History: States: Unknown Family Hx - Social History Hx Alcohol Use: No Hx Substance Use: No - Immunization History Hx Tetanus Toxoid Vaccination: No Hx Influenza Vaccination: No Hx Pneumococcal Vaccination: No Review Of Systems Constitutional: Negative for: Fever, Chills, Weakness Cardiovascular: Negative for: Chest Pain, Palpitations Respiratory: Positive for: Shortness of Breath, Wheezing Gastrointestinal: Negative for: Nausea, Vomiting Neurological: Negative for: Weakness, Numbness, Dizziness Physical Exam - Physical Exam Appears: Well, Non-toxic, No Acute Distress Skin: Normal Color, Warm, Dry Head: Atraumatic, Normacephalic Neck: Normal ROM, Supple Chest: Symmetrical, No Deformity Cardiovascular: Rhythm Regular, No Murmur Respiratory: No Accessory Muscle Use, No Rales, No Rhonchi, Wheezing (left lung) Gastrointestinal/Abdominal: Soft, No Tenderness Extremity: Capillary Refill (<2 seconds) Neurological/Psych: Oriented x3, Normal Speech, Normal Cognition ED Course And Treatment - Laboratory Results Result Diagrams: 08/11/18 14:42 08/11/18 14:42 Lab Results: PT 11.1 SECONDS (9.7-12.2) 08/11/18 14:42 INR 1.0 08/11/18 14:42 APTT 26 SECONDS (21-34) 08/11/18 14:42 Troponin I < 0.0120 ng/mL (0.00-0.120) 08/11/18 14:42 Total Bilirubin 0.7 mg/dL (0.2-1.3) 08/11/18 14:42 AST 23 U/L (17-59) 08/11/18 14:42 ALT 6 U/L (21-72) L D 08/11/18 14:42 Alkaline Phosphatase 59 U/L (38-126) 08/11/18 14:42 Total Protein 6.2 g/dL (6.3-8.3) L 08/11/18 14:42 Albumin 3.8 g/dL (3.5-5.0) 08/11/18 14:42 Globulin 2.3 gm/dL (2.2-3.9) 08/11/18 14:42 Albumin/Globulin Ratio 1.6 (1.0-2.1) 08/11/18 14:42 O2 Sat by Pulse Oximetry: 100 (in RA) - Other Rad CXR X-Ray: Interpreted by Me, Viewed By Me Interpretation: Accession No. : [id number]. Patient Name / ID : NICO HERRING / [id number]. Exam Date : 08/11/2018 13:17:50 ( Approved ). Study Comment : Sex / Age : M / 48Y. Creator : Jt Hoang MD. Dictator : Jt Hoang MD. Weather Strip Mechanic : [employer] : Jt Hoang MD. Approver2 : Report Date : 08/11/2018 13:39:51. My Comment : . Date of service: 08/11/2018. HISTORY: SOB, lightheaded. COMPARISON: Comparison chest dated 08/04/2018. crisis. TECHNIQUE: 1 view obtained. FINDINGS: LUNGS: No active pulmonary disease. PLEURA: No significant pleural effusion identified, no pneumothorax apparent. There may be some minor left apical pleural thickening. CARDIOVASCULAR: No aortic atherosclerotic calcification present. Normal cardiac size. No pulmonary vascular congestion. OSSEOUS STRUCTURES: No significant abnormalities. VISUALIZED UPPER ABDOMEN: Normal. OTHER FINDINGS: None. IMPRESSION: No active disease. - CT Scan/US Head CT Other Rad Studies (CT/US): Interpreted By Me, Read By Radiologist CT/US Interpretation: Accession No. : [id number]. Patient Name / ID : NICO HERRING / [id number]. Exam Date : 08/11/2018 13:25:29 ( Approved ). Study Comment : Sex / Age : M / 48Y. Creator : Melida Wong. Dictator : Jt Hoang MD. Weather Strip Mechanic : [employer] : Jt Hoang MD. Approver2 : Report Date : 08/11/2018 13:34:32. My Comment : . Date of service: 08/11/2018. PROCEDURE: CT HEAD WITHOUT CONTRAST. HISTORY: Dizziness. COMPARISON: None available. TECHNIQUE: Axial computed tomography images were obtained through the head/brain without intravenous contrast. Radiation dose: Total exam DLP = 1224.03 mGy-cm. This CT exam was performed using one or more of the following dose reduction techniques: Automated exposure control, adjustment of the mA and/or kV according to patient size, and/or use of iterative reconstruction technique. FINDINGS: HEMORRHAGE: No acute parenchymal, subarachnoid or extra-axial hemorrhage. BRAIN: No mass effect or edema. No atrophy or chronic microvascular ischemic changes. VENTRICLES: Unremarkable. No hydrocephalus. CALVARIUM: Unremarkable. PARANASAL SINUSES: Minimal mucosal thickening seen within the inferior posterior aspect right chamber sphenoid sinus.. MASTOID AIR CELLS: U nremarkable as visualized. No inflammatory changes. OTHER FINDINGS: None. IMPRESSION: No acute intracranial hemorrhage. Progress Note: Head CT, EKG, and CXR. Labs ordered with drug screen, CBC, CMP, and UA. Patient given Albuterol INH and Duoneb IH. - Physician Consult Information Physician Contacted: Sujatha Rojas Outcome Of Conversation: accepted to tele for observation Disposition - Disposition Disposition: HOSPITALIZED Disposition Time: 16:22 Condition: FAIR - Clinical Impression Clinical Impression: Near syncope - PA / ROVING CHANGER / Resident Statement MD/DO has reviewed & agrees with the documentation as recorded. (Milagros Mcdonald) - Scribe Statement The provider has reviewed the documentation as recorded by the Scribe (Milagros Mcdonald) All medical record entries made by the Scribe were at my direction and personally dictated by me. I have reviewed the chart and agree that the record accurately reflects my personal performance of the history, physical exam, [facility] decision making, and the department course for this patient. I have also personally directed, reviewed, and agree with the discharge instructions and disposition. Decision To Admit - Pt Status Changed To: Hospital Disposition Of: Observation - . Bed Request Type: Telemetry Admitting Physician: Sujatha Rojas Patient Diagnosis: Near syncope
[2018-08-11 16:57] LABS: URINE BILIRUBIN NEGATIVE (NEGATIVE); URINE BLOOD NEGATIVE (NEGATIVE); URINE CLARITY Clear (Clear); URINE COLOR Yellow (YELLOW); URINE GLUCOSE (UA) NORMAL (Normal); URINE LEUKOCYTE ESTERASE NEG Leu/uL (Negative); URINE PROTEIN NEGATIVE (NEGATIVE); URINE UROBILINOGEN NORMAL mg/dL (0.2-1.0)
[2018-08-11 17:00] LABS: BARBITURATES, UR NEGATIVE (NEGATIVE); BENZODIAZEPINES, UR NEGATIVE (NEGATIVE); OPIATES, UR NEGATIVE (NEGATIVE); PHENCYCLIDINE, UR NEGATIVE (NEGATIVE)
--- NOTE | 2018-08-11 18:26 | CP.PCM.HP ---
History of Present Illness - History of Present Illness History of Present Illness: 48 yo M with PMH of Asthma and multiple prior hospitalizations including 2 prior intubations due to acute respiratory failure, and Recent PNA presents to ED with c/o near-syncope and sudden onset SOB a/w wheezing ongoing since past few days [employer]. Pt was recently admitted to [facility] for similar symptoms diagnosed as Asthma exacerbation and subsequently discharged. Pt states symptoms returned shortly post discharge. Per pt, he was at home resting when he experienced sudden onset dizziness and near-sycope sensation. Pt was prompted to come to ED via Uber for further evaluation. Pt states SOB is intermittent and nonexertional . Pt denies fever, chills, chest pain, n/v/d, abdominal pain, palpitations, parasthesias, weakness. Pt denies syncope or LOC. Pt follows PMD Dr Chowdhury and pulmonary Dr Zhang, both located in [facility]. Pt reports positive family history of Asthma in mother and brother. Pt denies any toxic habits - UDS negative on admission. Pt accepted to observation with telemetry for further workup and management. Present on Admission - Present on Admission Any Indicators Present on Admission: No Review of Systems - Cardiovascular Cardiovascular: Dyspnea - Respiratory Respiratory: Dyspnea, Wheezing - Neurological Neurological: Dizziness Past Patient History - Infectious Disease Hx of Infectious Diseases: None - Past Medical History & Family History Past Medical History?: Yes - Past Social History Smoking Status: Never Smoked - CARDIAC Hx Cardiac Disorders: No - PULMONARY Hx Asthma: Yes Hx Pneumonia: Yes - NEUROLOGICAL Hx Neurological Disorder: No Hx Dizziness: Yes - HEENT Hx HEENT Problems: No - RENAL Hx Chronic Kidney Disease: No - ENDOCRINE/METABOLIC Hx Endocrine Disorders: No - HEMATOLOGICAL/ONCOLOGICAL Hx Blood Disorders: No Hx Blood Transfusions: No - INTEGUMENTARY Hx Dermatological Problems: No - MUSCULOSKELETAL/RHEUMATOLOGICAL Hx Musculoskeletal Disorders: No Hx Falls: No - GASTROINTESTINAL Hx Gastrointestinal Disorders: No - GENITOURINARY/GYNECOLOGICAL Hx Genitourinary Disorders: No - PSYCHIATRIC Hx Substance Use: No - SURGICAL HISTORY Hx Surgeries: Yes Hx Orthopedic Surgery: Yes (right big toe) - ANESTHESIA Hx Anesthesia: Yes Hx Anesthesia Reactions: No Meds Allergies/Adverse Reactions: Allergies Allergy/AdvReac Type Severity Reaction Status Date / Time No Known Allergies Allergy Verified 05/06/18 07:38 Physical Exam - Constitutional Appears: Well - Head Exam Head Exam: ATRAUMATIC, NORMAL INSPECTION, NORMOCEPHALIC - Eye Exam Eye Exam: EOMI, Normal appearance, PERRL Pupil Exam: NORMAL ACCOMODATION, PERRL - ENT Exam ENT Exam: Mucous Membranes Moist, Normal Exam - Neck Exam Neck exam: Positive for: Normal Inspection - Respiratory Exam Respiratory Exam: Decreased Breath Sounds - Cardiovascular Exam Cardiovascular Exam: REGULAR RHYTHM, +S1, +S2 - GI/Abdominal Exam GI & Abdominal Exam: Diminished Bowel Sounds, Soft - Rectal Exam Rectal Exam: Deferred - Neurological Exam Neurological exam: Alert, Oriented x3 Results - Vital Signs Recent Vital Signs: Last Vital Signs Temp 98.4 F 08/11/18 18:24 Pulse 69 08/11/18 18:24 Resp 18 08/11/18 18:24 BP 129/81 08/11/18 18:24 Pulse Ox 96 08/11/18 18:24 - Labs Result Diagrams: 08/11/18 14:42 08/11/18 14:42 Labs: Laboratory Results - last 24 hr 08/11/18 08/11/18 08/11/18 11:50 14:42 14:42 WBC 6.3 D RBC 4.50 Hgb 14.4 Hct 42.1 MCV 93.5 MCH 31.9 H MCHC 34.1 RDW 12.8 Plt Count 218 MPV 9.4 Neut % (Auto) 48.3 L Lymph % (Auto) 37.7 [place] % (Auto) 11.0 H Eos % (Auto) 2.2 Baso % (Auto) 0.8 Neut # (Auto) 3.1 Lymph # (Auto) 2.4 [place] # (Auto) 0.7 Eos # (Auto) 0.1 Baso # (Auto) 0.1 PT 11.1 INR 1.0 APTT 26 Sodium Potassium Chloride Carbon Dioxide Anion Gap BUN Creatinine Est GFR ( Amer) Est GFR (Non-Af Amer) POC Glucose (mg/dL) 74 Random Glucose Calcium Total Bilirubin AST ALT Alkaline Phosphatase Total Creatine Kinase CK-MB (Mass) Troponin I Total Protein Albumin Globulin Albumin/Globulin Ratio Urine Color Urine Clarity Urine pH Ur Specific [place] Urine Protein Urine Glucose (UA) Urine Ketones Urine Blood Urine Nitrate Urine Bilirubin Urine Urobilinogen Ur Leukocyte Esterase Urine WBC (Auto) Urine RBC (Auto) Urine Opiates Screen Urine Methadone Screen Ur Barbiturates Screen Ur Phencyclidine Scrn Ur Amphetamines Screen U Benzodiazepines Scrn U Oth Cocaine Metabols U Cannabinoids Screen 08/11/18 08/11/18 08/11/18 14:42 16:30 16:30 WBC RBC Hgb Hct MCV MCH MCHC RDW Plt Count MPV Neut % (Auto) Lymph % (Auto) [place] % (Auto) Eos % (Auto) Baso % (Auto) Neut # (Auto) Lymph # (Auto) [place] # (Auto) Eos # (Auto) Baso # (Auto) PT INR APTT Sodium 135 Potassium 3.5 L Chloride 101 Carbon Dioxide 26 Anion Gap 11 BUN 16 Creatinine 0.9 Est GFR ( Amer) > 60 Est GFR (Non-Af Amer) > 60 POC Glucose (mg/dL) Random Glucose 113 H Calcium 8.6 Total Bilirubin 0.7 AST 23 ALT 6 L D Alkaline Phosphatase 59 Total Creatine Kinase 43 L CK-MB (Mass) 0.50 Troponin I < 0.0120 Total Protein 6.2 L Albumin 3.8 Globulin 2.3 Albumin/Globulin Ratio 1.6 Urine Color Yellow Urine Clarity Clear Urine pH 6.0 Ur Specific [place] 1.013 Urine Protein Negative Urine Glucose (UA) Normal Urine Ketones Negative Urine Blood Negative Urine Nitrate Negative Urine Bilirubin Negative Urine Urobilinogen Normal Ur Leukocyte Esterase Neg Urine WBC (Auto) < 1 Urine RBC (Auto) 1 Urine Opiates Screen Negative Urine Methadone Screen Negative Ur Barbiturates Screen Negative Ur Phencyclidine Scrn Negative Ur Amphetamines Screen Negative U Benzodiazepines Scrn Negative U Oth Cocaine Metabols Negative U Cannabinoids Screen Negative Assessment & Plan - Assessment and Plan (Free Text) Plan: Near Syncope/Dizziness EKG NSR@[address] T wave changes CT Head no acute intracranial pathology VSS Antivert 25 mg QD orthostatics Echo proBNP tele monitor Asthma Exacerbation CXR no acute cardiopulmonay disease h/o recent PNA afebrile, no leukocytosis UA neg empiric iv abx w/Azithro and Rocephin Duonebs Solumedrol 40 mg ivp q8h Singulair Breo Tylenol prn AM labs Hypokalemia on presentation K 3.5 , repleted with KCl 40 meq monitor AM CBC BMP , replete K prn monitor for fever pulse ox DVT PPx - SCDs, Lovenox 40 SC QD No need for GI PPx HH diet as tolerated Dispo: Likely discharge tomorrow pending Echo results
[2018-08-11] MEDS ORDERED: Potassium Chloride 20 mEq ER Tab PO STA (22:57)
[2018-08-12] MEDS: Albuterol-Ipratrop 3 mg / 0.5 (3 ml) UD INH SCH ×4 (01:05→19:24)
[2018-08-12 01:23] VITALS: RESP 20
[2018-08-12] MEDS: MethylPREDNISolone 40 mg Vial IVP SCH ×3 (05:54→21:38)
--- NOTE | 2018-08-12 09:55 | CP.PCM.PN ---
Subjective - Date & Time of Evaluation Date of Evaluation: 08/12/18 Time of Evaluation: 09:54 - Subjective Subjective: 48 year old male with a past medical history of asthma with two previous intubations and recent dx of PNA presents to ED for sudden onset of SOB and wheezing for the past couple of days. Of note, patient was recently admitted and discharged from [facility] for similar symptoms. Patient states that the symptoms shortly came back after being discharged. He states he was resting at his home when he began to feel dizzy and felt as though he would pass out. Patient subsequently called an Uber to come to the hospital. Patient reports the shortness of breath comes and goes. He denies any dyspnea on exertion. Patient denies chest pain, cough, chills, abdominal pain, weakness, nausea, vomiting, and any other symptoms. Medical history: asthma, vertigo Surgical history: L foot surgery Meds: See med list Allergies: NKDA Social: Denies tobacco, alcohol and illicit drugs Family Hx: mother and brother with asthma Pulmonary: Dr. Zhang ([facility]) PMD: Dr. Chowdhury ([facility]) Objective - Vital Signs/Intake and Output Vital Signs (last 24 hours): Temp Pulse Resp BP Pulse Ox 97.8 F 69 20 134/78 100 08/12/18 07:25 08/12/18 07:25 08/12/18 07:25 08/12/18 07:25 08/12/18 07:25 - Medications Medications: Current Medications Albuterol/Ipratropium (Duoneb 3 Mg/0.5 Mg (3 Ml) Ud) 3 ml INH RQ6 TESS Last Admin: 08/12/18 01:05 Dose: Not Given Enoxaparin Sodium (Lovenox) 40 mg SC DAILY [facility] Fluticasone/Vilanterol (Breo Ellipta 100-25 Mcg Inh) 1 puff INH RQD TESS Azithromycin 500 mg/ Sodium (Chloride) 250 mls @ 250 mls/hr IVPB DAILY TESS; Protocol Ceftriaxone Sodium 1 gm/ (Sodium Chloride) 100 mls @ 100 mls/hr IVPB DAILY TESS; Protocol Methylprednisolone (Solu-Medrol) 40 mg IVP Q8 TESS Last Admin: 08/12/18 05:54 Dose: 40 mg Montelukast Sodium (Singulair) 10 mg PO DAILY TESS - Labs Labs: 08/11/18 14:42 08/11/18 14:42 PT 11.1 SECONDS (9.7-12.2) 08/11/18 14:42 INR 1.0 08/11/18 14:42 APTT 26 SECONDS (21-34) 08/11/18 14:42 - Head Exam Head Exam: ATRAUMATIC, NORMAL INSPECTION - Eye Exam Eye Exam: EOMI, Normal appearance, PERRL Pupil Exam: NORMAL ACCOMODATION, PERRL. absent: Irregular, Unequal - ENT Exam ENT Exam: Mucous Membranes Moist, Normal Oropharynx - Respiratory Exam Respiratory Exam: Clear to Ausculation Bilateral, NORMAL BREATHING PATTERN. absent: Prolonged Expiratory Phase, Respiratory Distress - Cardiovascular Exam Cardiovascular Exam: REGULAR RHYTHM, +S1, +S2 - GI/Abdominal Exam GI & Abdominal Exam: Soft, Normal Bowel Sounds. absent: Rigid, Hyperactive Bowel Sounds - Extremities Exam Extremities Exam: Full ROM, Normal Inspection. absent: Pedal Edema - Back Exam Back Exam: NORMAL INSPECTION. absent: CVA tenderness (R), paraspinal tenderness - Neurological Exam Neurological Exam: Alert, Awake, CN II-XII Intact, Oriented x3 - Psychiatric Exam Psychiatric exam: Normal Affect, Normal Mood. absent: Depressed - Skin Skin Exam: Dry, Intact, Normal Color Assessment and Plan - Assessment and Plan (Free Text) Assessment: 48 year old male with a past medical history of asthma and pneumonia admitted to the hospital for asthma exerbation. Plan: 1. Near syncope/dizziness EKbpm, No ST/T changes. Head ct:No acute intracranial hemorrhage. Echocardiogram ordered. Will f/u with results. pro-BNP ordered. Will f/u with results. Medications: Start Antivert 25mg PO DAILY 2. Asthma exacerbation CXR:No active disease. Medications: Breo Ellipta 1 puff INH RQD TESS Solumedrol 40mg IVP Q8 TESS Singulair 10 mg PO DAILY TESS Duoneb 3ml INH RQ6 TESS Azithromycin 500MG ivpb ach Ceftriaxeon 1gm IVPB DAILY Ppx -Lovenox 40mg SC DAILY TESS Dispo: Likely discharge tomorrow pending imaging results. Plan discussed with Attending Dr. Kassandra Gibbons, PGY-2
[2018-08-12] MEDS: Enoxaparin 40 mg Syringe SC SCH (10:36)
[2018-08-12] MEDS: Azithromycin 500 MG in Sodium Chloride 0.9% 250 ML IVPB SCH (11:59)
[2018-08-12] MEDS: Fluticasone-Vilanterol 100/25mcg Diskus INH SCH (13:32)
--- NOTE | 2018-08-12 18:11 | CP.PCM.PN ---
Subjective - Subjective Subjective: Patient was seen and examined today No nausea No vomiting No fever No diarrhea Denies shortness of breath Objective - Vital Signs/Intake and Output Vital Signs (last 24 hours): Temp Pulse Resp BP Pulse Ox 98.2 F 99 H 20 124/70 97 08/12/18 17:37 08/12/18 17:37 08/12/18 17:37 08/12/18 17:37 08/12/18 17:37 - Medications Medications: Current Medications Acetaminophen (Tylenol 325mg Tab) 650 mg PO Q6 PRN PRN Reason: Headache Last Admin: 08/12/18 15:04 Dose: 650 mg Albuterol/Ipratropium (Duoneb 3 Mg/0.5 Mg (3 Ml) Ud) 3 ml INH RQ6 [facility] Last Admin: 08/12/18 13:32 Dose: 3 ml Enoxaparin Sodium (Lovenox) 40 mg SC DAILY [facility] Last Admin: 08/12/18 10:36 Dose: 40 mg Fluticasone/Vilanterol (Breo Ellipta 100-25 Mcg Inh) 1 puff INH RQD [facility] Last Admin: 08/12/18 13:32 Dose: 1 puff Azithromycin 500 mg/ Sodium (Chloride) 250 mls @ 250 mls/hr IVPB DAILY [facility]; Protocol Last Admin: 08/12/18 11:59 Dose: 250 mls/hr Ceftriaxone Sodium 1 gm/ (Sodium Chloride) 100 mls @ 100 mls/hr IVPB DAILY [facility]; Protocol Last Admin: 08/12/18 10:36 Dose: 100 mls/hr Meclizine HCl (Antivert) 25 mg PO DAILY [facility] Methylprednisolone (Solu-Medrol) 40 mg IVP Q8 [facility] Last Admin: 08/12/18 14:25 Dose: 40 mg Montelukast Sodium (Singulair) 10 mg PO DAILY [facility] Last Admin: 08/12/18 10:36 Dose: 10 mg - Labs Labs: 08/11/18 14:42 08/11/18 14:42 PT 11.1 SECONDS (9.7-12.2) 08/11/18 14:42 INR 1.0 08/11/18 14:42 APTT 26 SECONDS (21-34) 08/11/18 14:42 - Constitutional Appears: Well - Head Exam Head Exam: ATRAUMATIC, NORMAL INSPECTION, NORMOCEPHALIC - Eye Exam Eye Exam: EOMI, Normal appearance, PERRL Pupil Exam: NORMAL ACCOMODATION, PERRL - ENT Exam ENT Exam: Mucous Membranes Moist, Normal Exam - Neck Exam Neck Exam: Full ROM, Normal Inspection. absent: Lymphadenopathy - Respiratory Exam Respiratory Exam: Decreased Breath Sounds - Cardiovascular Exam Cardiovascular Exam: REGULAR RHYTHM, +S1, +S2 - GI/Abdominal Exam GI & Abdominal Exam: Soft, Diminished Bowel Sounds - Rectal Exam Rectal Exam: Deferred - Neurological Exam Neurological Exam: Oriented x3 Assessment and Plan - Assessment and Plan (Free Text) Plan: Antivert Azithromycin Breo Ellipta Ceftriaxone sodium DuoNeb Lovenox Singulair Solu-Medrol Tylenol Medications reviewed Labs reviewed Vitals reviewed
[2018-08-13] MEDS: Albuterol-Ipratrop 3 mg / 0.5 (3 ml) UD INH SCH ×4 (01:01→19:41)
[2018-08-13] MEDS: MethylPREDNISolone 40 mg Vial IVP SCH ×3 (05:08→22:12)
[2018-08-13] MEDS: Fluticasone-Vilanterol 100/25mcg Diskus INH SCH (08:25)
[2018-08-13] MEDS: Enoxaparin 40 mg Syringe SC SCH (10:47)
[2018-08-13] MEDS: Azithromycin 500 MG in Sodium Chloride 0.9% 250 ML IVPB SCH (12:11)
--- NOTE | 2018-08-13 19:44 | CP.PCM.PN ---
Subjective - Date & Time of Evaluation Date of Evaluation: 08/13/18 - Subjective Subjective: Patient is lying in the bed Patient still complains of has occasional flushes so cardiology called No nausea no vomiting Dizziness is better Shortness of breath is better Objective - Vital Signs/Intake and Output Vital Signs (last 24 hours): Temp Pulse Resp BP Pulse Ox 98 F 87 20 122/63 100 08/13/18 15:00 08/13/18 15:00 08/13/18 15:00 08/13/18 15:00 08/13/18 15:00 - Medications Medications: Current Medications Acetaminophen (Tylenol 325mg Tab) 650 mg PO Q6 PRN PRN Reason: Headache Last Admin: 08/12/18 15:04 Dose: 650 mg Albuterol/Ipratropium (Duoneb 3 Mg/0.5 Mg (3 Ml) Ud) 3 ml INH RQ6 [facility] Last Admin: 08/13/18 19:41 Dose: Not Given Enoxaparin Sodium (Lovenox) 40 mg SC DAILY [facility] Last Admin: 08/13/18 10:47 Dose: 40 mg Fluticasone/Vilanterol (Breo Ellipta 100-25 Mcg Inh) 1 puff INH RQD [facility] Last Admin: 08/13/18 08:25 Dose: 1 puff Meclizine HCl (Antivert) 25 mg PO DAILY [facility] Last Admin: 08/13/18 10:47 Dose: 25 mg Methylprednisolone (Solu-Medrol) 40 mg IVP Q8 [facility] Last Admin: 08/13/18 14:08 Dose: 40 mg Montelukast Sodium (Singulair) 10 mg PO DAILY [facility] Last Admin: 08/13/18 10:47 Dose: 10 mg - Labs Labs: 08/11/18 14:42 08/11/18 14:42 PT 11.1 SECONDS (9.7-12.2) 08/11/18 14:42 INR 1.0 08/11/18 14:42 APTT 26 SECONDS (21-34) 08/11/18 14:42 - Constitutional Appears: Well - Head Exam Head Exam: ATRAUMATIC, NORMAL INSPECTION, NORMOCEPHALIC - Eye Exam Eye Exam: EOMI, Normal appearance, PERRL Pupil Exam: NORMAL ACCOMODATION, PERRL - ENT Exam ENT Exam: Mucous Membranes Moist, Normal Exam - Neck Exam Neck Exam: Full ROM, Normal Inspection. absent: Lymphadenopathy - Respiratory Exam Respiratory Exam: Decreased Breath Sounds - Cardiovascular Exam Cardiovascular Exam: REGULAR RHYTHM, +S1, +S2 - GI/Abdominal Exam GI & Abdominal Exam: Soft, Diminished Bowel Sounds - Rectal Exam Rectal Exam: Deferred - Neurological Exam Neurological Exam: Oriented x3 Assessment and Plan - Assessment and Plan (Free Text) Plan: medications reviewed labs reviewed vitals reviewed antivert breo ellipta duoneb lovenox singulair solu-medrol tylenol 325mg tab Possible discharge tomorrow Cardiology consultations Medication as ordered
[2018-08-14] MEDS: Albuterol-Ipratrop 3 mg / 0.5 (3 ml) UD INH SCH ×3 (01:19→13:30)
[2018-08-14] MEDS: MethylPREDNISolone 40 mg Vial IVP SCH ×3 (05:28→21:18)
--- NOTE | 2018-08-14 07:47 | CP.PCM.CON ---
History of Present Illness - History of Present Illness History of Present Illness: CC: Presyncope HPI: 48 year old man with several week onset of presyncope. Assoicated with "hot flashes" Worse with volume depletion. Has improved with IVF. He is reporting one episode of syncope without fecal incontinence. Review of Systems - Review of Systems All systems: reviewed and no additional remarkable complaints except Past Patient History - Infectious Disease Hx of Infectious Diseases: None - Past Medical History & Family History Past Medical History?: Yes - Past Social History Smoking Status: Never Smoked - CARDIAC Hx Cardiac Disorders: No - PULMONARY Hx Asthma: Yes Hx Pneumonia: Yes - NEUROLOGICAL Hx Neurological Disorder: No Hx Dizziness: Yes - HEENT Hx HEENT Problems: No - RENAL Hx Chronic Kidney Disease: No - ENDOCRINE/METABOLIC Hx Endocrine Disorders: No - HEMATOLOGICAL/ONCOLOGICAL Hx Blood Disorders: No Hx Blood Transfusions: No - INTEGUMENTARY Hx Dermatological Problems: No - MUSCULOSKELETAL/RHEUMATOLOGICAL Hx Musculoskeletal Disorders: No Hx Falls: No - GASTROINTESTINAL Hx Gastrointestinal Disorders: No - GENITOURINARY/GYNECOLOGICAL Hx Genitourinary Disorders: No - PSYCHIATRIC Hx Substance Use: No - SURGICAL HISTORY Hx Surgeries: Yes Hx Orthopedic Surgery: Yes (right big toe) - ANESTHESIA Hx Anesthesia: Yes Hx Anesthesia Reactions: No Meds Allergies/Adverse Reactions: Allergies Allergy/AdvReac Type Severity Reaction Status Date / Time No Known Allergies Allergy Verified 05/06/18 07:38 - Medications Medications: Current Medications Acetaminophen (Tylenol 325mg Tab) 650 mg PO Q6 PRN PRN Reason: Headache Last Admin: 08/12/18 15:04 Dose: 650 mg Albuterol/Ipratropium (Duoneb 3 Mg/0.5 Mg (3 Ml) Ud) 3 ml INH RQ6 [facility] Last Admin: 08/14/18 01:19 Dose: Not Given Enoxaparin Sodium (Lovenox) 40 mg SC DAILY [facility] Last Admin: 08/13/18 10:47 Dose: 40 mg Fluticasone/Vilanterol (Breo Ellipta 100-25 Mcg Inh) 1 puff INH RQD [facility] Last Admin: 08/13/18 08:25 Dose: 1 puff Meclizine HCl (Antivert) 25 mg PO DAILY [facility] Last Admin: 08/13/18 10:47 Dose: 25 mg Methylprednisolone (Solu-Medrol) 40 mg IVP Q8 [facility] Last Admin: 08/14/18 05:28 Dose: 40 mg Montelukast Sodium (Singulair) 10 mg PO DAILY [facility] Last Admin: 08/13/18 10:47 Dose: 10 mg Physical Exam - Constitutional Appears: Well, Non-toxic - Head Exam Head Exam: ATRAUMATIC, NORMAL INSPECTION - Eye Exam Eye Exam: PERRL. absent: Scleral icterus - ENT Exam ENT Exam: Mucous Membranes Moist, Normal Oropharynx - Neck Exam Neck exam: Negative for: Lymphadenopathy, Thyromegaly - Respiratory Exam Respiratory Exam: Clear to Auscultation Bilateral, NORMAL BREATHING PATTERN - Cardiovascular Exam Cardiovascular Exam: REGULAR RHYTHM, RRR, +S1, +S2. absent: JVD - GI/Abdominal Exam GI & Abdominal Exam: Hyperactive Bowel Sounds, Normal Bowel Sounds. absent: Organomegaly - Extremities Exam Extremities exam: Negative for: calf tenderness, pedal edema - Neurological Exam Neurological exam: CN II-XII Intact, Oriented x3 - Psychiatric Exam Psychiatric exam: Normal Affect, Normal Mood Results - Vital Signs Recent Vital Signs: Last Vital Signs Temp 98 F 08/13/18 23:15 Pulse 73 08/14/18 05:09 Resp 20 08/13/18 23:15 BP 137/82 08/13/18 23:15 Pulse Ox 98 08/13/18 23:15 - Labs Result Diagrams: 08/11/18 14:42 08/11/18 14:42 - EKG Data EKG Interpreted by: Myself EKG shows normal: Sinus rhythm Rate: Normal - Imaging and Cardiology Chest x-ray Status: Image reviewed by me Additional comment: No infiltrate or effusion Assessment & Plan - Assessment and Plan (Free Text) Assessment: 48 year old man with syncope likely vasodepressor mechanism, I would order IVF to achieve euvolemia. We discussed at length on the autonomic nature of this disorder. I encourage a more liberal salt and fluid intake. We will consider a tilt table and possible MANUEL stockings in the office on follow up. COPD chronic and now stable on steroids, bronchodilators Hypokalemia is likely due to volume depletion and warrants repletion. - Date & Time Date: 08/14/18 Time: 07:00
[2018-08-14] MEDS: Fluticasone-Vilanterol 100/25mcg Diskus INH SCH (08:04)
[2018-08-14] MEDS: Enoxaparin 40 mg Syringe SC SCH (09:39)
--- NOTE | 2018-08-14 10:11 | CP.PCM.PN ---
Subjective - Date & Time of Evaluation Date of Evaluation: 08/14/18 - Subjective Subjective: Patient seen and examined today No nausea No vomiting No fever No diarrhea No dizziness No shortness of breath Objective - Vital Signs/Intake and Output Vital Signs (last 24 hours): Temp Pulse Resp BP Pulse Ox 97.9 F 76 20 132/75 99 08/14/18 07:22 08/14/18 07:22 08/14/18 07:22 08/14/18 07:22 08/14/18 07:22 - Medications Medications: Current Medications Acetaminophen (Tylenol 325mg Tab) 650 mg PO Q6 PRN PRN Reason: Headache Last Admin: 08/12/18 15:04 Dose: 650 mg Albuterol/Ipratropium (Duoneb 3 Mg/0.5 Mg (3 Ml) Ud) 3 ml INH RQ6 [facility] Last Admin: 08/14/18 08:04 Dose: 3 ml Enoxaparin Sodium (Lovenox) 40 mg SC DAILY [facility] Last Admin: 08/14/18 09:39 Dose: 40 mg Fluticasone/Vilanterol (Breo Ellipta 100-25 Mcg Inh) 1 puff INH RQD [facility] Last Admin: 08/14/18 08:04 Dose: 1 puff Meclizine HCl (Antivert) 25 mg PO DAILY [facility] Last Admin: 08/14/18 09:31 Dose: 25 mg Methylprednisolone (Solu-Medrol) 40 mg IVP Q8 [facility] Last Admin: 08/14/18 05:28 Dose: 40 mg Montelukast Sodium (Singulair) 10 mg PO DAILY [facility] Last Admin: 08/14/18 09:31 Dose: 10 mg - Labs Labs: 08/11/18 14:42 08/11/18 14:42 PT 11.1 SECONDS (9.7-12.2) 08/11/18 14:42 INR 1.0 08/11/18 14:42 APTT 26 SECONDS (21-34) 08/11/18 14:42 - Constitutional Appears: Well - Head Exam Head Exam: ATRAUMATIC, NORMAL INSPECTION, NORMOCEPHALIC - Eye Exam Eye Exam: EOMI, Normal appearance, PERRL Pupil Exam: NORMAL ACCOMODATION, PERRL - ENT Exam ENT Exam: Mucous Membranes Moist, Normal Exam - Neck Exam Neck Exam: Full ROM, Normal Inspection. absent: Lymphadenopathy - Respiratory Exam Respiratory Exam: Decreased Breath Sounds - Cardiovascular Exam Cardiovascular Exam: REGULAR RHYTHM, +S1, +S2 - GI/Abdominal Exam GI & Abdominal Exam: Soft, Diminished Bowel Sounds - Rectal Exam Rectal Exam: Deferred - Neurological Exam Neurological Exam: Oriented x3 Assessment and Plan - Assessment and Plan (Free Text) Plan: antivert breo ellipta duoneb lovenox singulair solu-medrol tylenol medicatios reviewed labs reviewed vitals reviewed
--- NOTE | 2018-08-14 19:36 | CARD ---
APPROVED REPORT Date of service: 08/11/2018 EKG Measurement Heart [id number] <Conclusion> Normal sinus rhythm Normal ECG
[2018-08-15] MEDS: Albuterol-Ipratrop 3 mg / 0.5 (3 ml) UD INH SCH ×3 (01:15→13:31)
[2018-08-15] MEDS: MethylPREDNISolone 40 mg Vial IVP SCH ×2 (05:59→14:03)
[2018-08-15 08:08] VITALS: BP 111/66; TEMP 97.8; O2SAT 97
[2018-08-15] MEDS: Enoxaparin 40 mg Syringe SC SCH (09:57)
[2018-08-15] MEDS: Fluticasone-Vilanterol 100/25mcg Diskus INH SCH (13:31)
--- NOTE | 2018-08-15 13:49 | CP.PCM.PN ---
Subjective - Date & Time of Evaluation Date of Evaluation: 08/15/18 - Subjective Subjective: patient seen and examined no nausea, no vomiting, no fever, no diarrhea denies sob Objective - Vital Signs/Intake and Output Vital Signs (last 24 hours): Temp Pulse Resp BP Pulse Ox 97.8 F 73 20 111/66 97 08/15/18 07:00 08/15/18 08:00 08/15/18 07:00 08/15/18 07:00 08/15/18 07:00 - Medications Medications: Current Medications Acetaminophen (Tylenol 325mg Tab) 650 mg PO Q6 PRN PRN Reason: Headache Last Admin: 08/12/18 15:04 Dose: 650 mg Albuterol/Ipratropium (Duoneb 3 Mg/0.5 Mg (3 Ml) Ud) 3 ml INH RQ6 [facility] Last Admin: 08/15/18 13:31 Dose: 3 ml Enoxaparin Sodium (Lovenox) 40 mg SC DAILY [facility] Last Admin: 08/15/18 09:57 Dose: 40 mg Fluticasone/Vilanterol (Breo Ellipta 100-25 Mcg Inh) 1 puff INH RQD [facility] Last Admin: 08/15/18 13:31 Dose: 1 puff Meclizine HCl (Antivert) 25 mg PO DAILY [facility] Last Admin: 08/15/18 09:57 Dose: 25 mg Methylprednisolone (Solu-Medrol) 40 mg IVP Q8 [facility] Last Admin: 08/15/18 05:59 Dose: 40 mg Montelukast Sodium (Singulair) 10 mg PO DAILY [facility] Last Admin: 08/15/18 09:57 Dose: 10 mg - Labs Labs: 08/11/18 14:42 08/11/18 14:42 PT 11.1 SECONDS (9.7-12.2) 08/11/18 14:42 INR 1.0 08/11/18 14:42 APTT 26 SECONDS (21-34) 08/11/18 14:42 - Constitutional Appears: Well - Head Exam Head Exam: ATRAUMATIC, NORMAL INSPECTION, NORMOCEPHALIC - Eye Exam Eye Exam: EOMI, Normal appearance, PERRL Pupil Exam: NORMAL ACCOMODATION, PERRL - ENT Exam ENT Exam: Mucous Membranes Moist, Normal Exam - Neck Exam Neck Exam: Full ROM, Normal Inspection. absent: Lymphadenopathy - Respiratory Exam Respiratory Exam: Decreased Breath Sounds - Cardiovascular Exam Cardiovascular Exam: REGULAR RHYTHM, +S1, +S2 - GI/Abdominal Exam GI & Abdominal Exam: Soft, Diminished Bowel Sounds - Rectal Exam Rectal Exam: Deferred - Neurological Exam Neurological Exam: Oriented x3 Assessment and Plan - Assessment and Plan (Free Text) Plan: vitals reviewed labs reviewed medications reviewed
--- NOTE | 2018-08-15 16:37 | CP.PCM.PN ---
Subjective - Date & Time of Evaluation Date of Evaluation: 08/15/18 Time of Evaluation: 16:36 - Subjective Subjective: PATIENT SEEN AND EXAMINED AT THE BEDSIDE Objective - Vital Signs/Intake and Output Vital Signs (last 24 hours): Temp Pulse Resp BP Pulse Ox 97.8 F 92 H 20 111/66 97 08/15/18 07:00 08/15/18 13:09 08/15/18 07:00 08/15/18 07:00 08/15/18 07:00 Intake and Output: 08/15/18 08/15/18 06:59 18:59 Intake Total 600 Balance 600 - Medications Medications: Current Medications Acetaminophen (Tylenol 325mg Tab) 650 mg PO Q6 PRN PRN Reason: Headache Last Admin: 08/12/18 15:04 Dose: 650 mg Albuterol/Ipratropium (Duoneb 3 Mg/0.5 Mg (3 Ml) Ud) 3 ml INH RQ6 [facility] Last Admin: 08/15/18 13:31 Dose: 3 ml Enoxaparin Sodium (Lovenox) 40 mg SC DAILY [facility] Last Admin: 08/15/18 09:57 Dose: 40 mg Fluticasone/Vilanterol (Breo Ellipta 100-25 Mcg Inh) 1 puff INH RQD [facility] Last Admin: 08/15/18 13:31 Dose: 1 puff Meclizine HCl (Antivert) 25 mg PO DAILY [facility] Last Admin: 08/15/18 09:57 Dose: 25 mg Methylprednisolone (Solu-Medrol) 40 mg IVP Q8 [facility] Last Admin: 08/15/18 14:03 Dose: 40 mg Montelukast Sodium (Singulair) 10 mg PO DAILY [facility] Last Admin: 08/15/18 09:57 Dose: 10 mg - Labs Labs: 08/11/18 14:42 08/11/18 14:42 PT 11.1 SECONDS (9.7-12.2) 08/11/18 14:42 INR 1.0 08/11/18 14:42 APTT 26 SECONDS (21-34) 08/11/18 14:42 Assessment and Plan - Assessment and Plan (Free Text) Assessment: follow up with dr brock bobo in his office -----call for appointment follow up with dr zamorano in his office address your tilt table test at your visit continue home medication new prescription given levaquin 500 mg po dialy for 5 days medrol dose as directed BREO AND SINGULAIR activity as tolerated call dr brock bobo or go to the emergency room if symptom return or worsening
[2018-08-15 17:19] VITALS: PULSE 78
--- NOTE | 2018-08-15 18:17 | CARD ---
APPROVED REPORT Date of service: 08/15/2018 EXAM: Two-dimensional and M-mode echocardiogram with Doppler and color Doppler. Other Information Quality : GoodRhythm : INDICATION Syncope recurrent dizzy spells RISK FACTORS Hyperlipidemia 2D DIMENSIONS IVSd1.2 (0.7-1.1cm)LVDd4.4 (3.9-5.9cm) PWd1.2 (0.7-1.1cm)LA Qyopmk27 (18-58mL) LVDs2.7 (2.5-4.0cm)FS (%) 38.4 % LVEF (%)68.9 (>50%)LVEF (Heller's)72 % IVC0.00 cm M-Mode DIMENSIONS RVDd1.55 (2.1-3.2cm)Left Atrium (MM)2.99 (2.5-4.0cm) IVSd1.08 (0.7-1.1cm)Aortic Root2.89 (2.2-3.7cm) LVDd4.87 (4.0-5.6cm)Aortic Cusp Exc.1.99 (1.5-2.0cm) PWd1.20 (0.7-1.1cm)FS (%) 43 % LVDs2.79 (2.0-3.8cm)LVEF (%)74 (>50%) Mitral Valve MV E Jbzzmsav22.1cm/sMV A Ayslqbou35.5cm/sE/A ratio1.0 TDI Lateral E' Peak V14.35cm/sMedial E' Peak V8.22cm/sE/Lateral E'4.1 E/Medial E'7.2 Tricuspid Valve TR Peak Xwwipfli767hu/sTR Peak Gr.[id number] LEFT VENTRICLE The left ventricle is normal size. There is borderline concentric left ventricular hypertrophy. The left ventricular function is normal. The left ventricular ejection fraction is within the normal range. There is normal LV segmental wall motion. Transmitral Doppler flow pattern is Grade I-abnormal relaxation pattern. RIGHT VENTRICLE The right ventricle is normal size. There is normal right ventricular wall thickness. The right ventricular systolic function is normal. ATRIA The left atrium size is normal. The right atrium size is normal. AORTIC VALVE The aortic valve is normal in structure. There is mild aortic regurgitation. There is no aortic valvular stenosis. MITRAL VALVE The mitral valve is normal in structure. There is no mitral valve stenosis. There is no mitral valve regurgitation noted. TRICUSPID VALVE The tricuspid valve is normal in structure. There is trace tricuspid regurgitation. PULMONIC VALVE The pulmonary valve is normal in structure. There is mild pulmonic valvular regurgitation. GREAT VESSELS The aortic root is normal in size. The IVC is normal in size and collapses >50% with inspiration. <Conclusion> There is borderline concentric left ventricular hypertrophy. The left ventricular function is normal. The left ventricular ejection fraction is within the normal range. There is normal LV segmental wall motion. Transmitral Doppler flow pattern is Grade I-abnormal relaxation pattern. There is mild aortic regurgitation. There is mild pulmonic valvular regurgitation.
--- NOTE | 2018-08-15 21:36 | CP.PCM.DIS ---
Provider - Provider Date of Admission: 08/13/18 12:40 Attending physician: Andreia Bobo MD Consults: 08/13/18 12:42 Cardiology Consult Routine Comment: Consulting Provider: Rogelio Zamorano Consulting Physician: Rogelio Zamorano Reason for Consult: chest pain Time Spent in preparation of Discharge (in minutes): 20 Hospital Course - Lab Results Lab Results: Most Recent Lab Values WBC 6.3 K/uL (4.8-10.8) D 08/11/18 14:42 RBC 4.50 Mil/uL (4.40-5.90) 08/11/18 14:42 Hgb 14.4 g/dL (12.0-18.0) 08/11/18 14:42 Hct 42.1 % (35.0-51.0) 08/11/18 14:42 MCV 93.5 fL (80.0-94.0) 08/11/18 14:42 MCH 31.9 pg (27.0-31.0) H 08/11/18 14:42 MCHC 34.1 g/dL (33.0-37.0) 08/11/18 14:42 RDW 12.8 % (11.5-14.5) 08/11/18 14:42 Plt Count 218 K/uL (130-400) 08/11/18 14:42 MPV 9.4 fL (7.2-11.7) 08/11/18 14:42 Neut % (Auto) 48.3 % (50.0-75.0) L 08/11/18 14:42 Lymph % (Auto) 37.7 % (20.0-40.0) 08/11/18 14:42 [place] % (Auto) 11.0 % (0.0-10.0) H 08/11/18 14:42 Eos % (Auto) 2.2 % (0.0-4.0) 08/11/18 14:42 Baso % (Auto) 0.8 % (0.0-2.0) 08/11/18 14:42 Neut # (Auto) 3.1 K/uL (1.8-7.0) 08/11/18 14:42 Lymph # (Auto) 2.4 K/uL (1.0-4.3) 08/11/18 14:42 [place] # (Auto) 0.7 K/uL (0.0-0.8) 08/11/18 14:42 Eos # (Auto) 0.1 K/uL (0.0-0.7) 08/11/18 14:42 Baso # (Auto) 0.1 K/uL (0.0-0.2) 08/11/18 14:42 PT 11.1 SECONDS (9.7-12.2) 08/11/18 14:42 INR 1.0 08/11/18 14:42 APTT 26 SECONDS (21-34) 08/11/18 14:42 Sodium 135 mmol/L (132-148) 08/11/18 14:42 Potassium 3.5 mmol/L (3.6-5.2) L 08/11/18 14:42 Chloride 101 mmol/L (98-107) 08/11/18 14:42 Carbon Dioxide 26 mmol/L (22-30) 08/11/18 14:42 Anion Gap 11 (10-20) 08/11/18 14:42 BUN 16 mg/dL (9-20) 08/11/18 14:42 Creatinine 0.9 mg/dL (0.8-1.5) 08/11/18 14:42 Est GFR ( Amer) > 60 08/11/18 14:42 Est GFR (Non-Af Amer) > 60 08/11/18 14:42 POC Glucose (mg/dL) 119 mg/dL (65-110) H 08/15/18 17:26 Random Glucose 113 mg/dL (75-110) H 08/11/18 14:42 Calcium 8.6 mg/dl (8.6-10.4) 08/11/18 14:42 Total Bilirubin 0.7 mg/dL (0.2-1.3) 08/11/18 14:42 AST 23 U/L (17-59) 08/11/18 14:42 ALT 6 U/L (21-72) L D 08/11/18 14:42 Alkaline Phosphatase 59 U/L (38-126) 08/11/18 14:42 Total Creatine Kinase 43 U/L (55-170) L 08/11/18 14:42 CK-MB (Mass) 0.50 ng/mL (0.0-3.38) 08/11/18 14:42 Troponin I < 0.0120 ng/mL (0.00-0.120) 08/11/18 14:42 NT-Pro-B Natriuret Pep 29.6 pg/mL (0-450) 08/12/18 17:10 Total Protein 6.2 g/dL (6.3-8.3) L 08/11/18 14:42 Albumin 3.8 g/dL (3.5-5.0) 08/11/18 14:42 Globulin 2.3 gm/dL (2.2-3.9) 08/11/18 14:42 Albumin/Globulin Ratio 1.6 (1.0-2.1) 08/11/18 14:42 Urine Color Yellow (YELLOW) 08/11/18 16:30 Urine Clarity Clear (Clear) 08/11/18 16:30 Urine pH 6.0 (5.0-8.0) 08/11/18 16:30 Ur Specific [place] 1.013 (1.003-1.030) 08/11/18 16:30 Urine Protein Negative mg/dL (NEGATIVE) 08/11/18 16:30 Urine Glucose (UA) Normal mg/dL (Normal) 08/11/18 16:30 Urine Ketones Negative mg/dL (NEGATIVE) 08/11/18 16:30 Urine Blood Negative (NEGATIVE) 08/11/18 16:30 Urine Nitrate Negative (NEGATIVE) 08/11/18 16:30 Urine Bilirubin Negative (NEGATIVE) 08/11/18 16:30 Urine Urobilinogen Normal mg/dL (0.2-1.0) 08/11/18 16:30 Ur Leukocyte Esterase Neg [place]/uL (Negative) 08/11/18 16:30 Urine WBC (Auto) < 1 /hpf (0-5) 08/11/18 16:30 Urine RBC (Auto) 1 /hpf (0-3) 08/11/18 16:30 Urine Opiates Screen Negative (NEGATIVE) 08/11/18 16:30 Urine Methadone Screen Negative (NEGATIVE) 08/11/18 16:30 Ur Barbiturates Screen Negative (NEGATIVE) 08/11/18 16:30 Ur Phencyclidine Scrn Negative (NEGATIVE) 04/04/19 16:30 Ur Amphetamines Screen Negative (NEGATIVE) 08/11/18 16:30 U Benzodiazepines Scrn Negative (NEGATIVE) 08/11/18 16:30 U Oth Cocaine Metabols Negative (NEGATIVE) 08/11/18 16:30 U Cannabinoids Screen Negative (NEGATIVE) 08/11/18 16:30 Discharge Exam - Head Exam Head Exam: ATRAUMATIC, NORMAL INSPECTION, NORMOCEPHALIC Discharge Plan - Discharge Medications Prescriptions: Fluticasone/Vilanterol 100/25 [Breo Ellipta 100-25 MCG INH] 1 puff INH RQD 30 Days puff levoFLOXacin [Levaquin] 500 mg PO DAILY 5 Days tab Methylprednisolone [Medrol Dose Pack (21 tabs)] 4 mg PO DAILY #21 mg Montelukast [Singulair] 10 mg PO DAILY 30 Days tab - Follow Up Plan Condition: FAIR Disposition: HOME/ ROUTINE Instructions: Asthma, Adult (DC), Levofloxacin (Systemic), Fluticasone and Vilanterol, Methylprednisolone, Montelukast, Near Fainting (DC) Additional Instructions: follow up with dr brock bobo in his office -----call for appointment follow up with dr zamorano in his office address your tilt table test at your visit continue home medication new prescription given levaquin 500 mg po dialy for 5 days medrol dose as directed BREO AND SINGULAIR activity as tolerated call dr brock bobo or go to the emergency room if symptom return or worsening Referrals: Rogelio Zamorano MD [Staff Provider] - Sujatha Bobo MD [Staff Provider] -
== END 2018-08-15 18:46 | disposition home or self-care (01) | DRG 203 ==
LOC: C.ER 10:04 → C.9E 16:21 → C.6T 16:48 → C.9E 17:03 → C.6T 17:05 → OBSVTOIN 08-13 12:40
PROVIDERS: ADMIT Internal Medicine Nephrology; ATTEND Internal Medicine Nephrology
DX: J45.901 Unspecified asthma with (acute) exacerbation (principal); R55 Syncope and collapse; E87.6 Hypokalemia; J44.9 Chronic obstructive pulmonary disease, unspecified; E86.9 Volume depletion, unspecified; Z87.01 Personal history of pneumonia (recurrent); Z82.5 Family history of asthma and other chronic lower respiratory diseases